=== PATIENT | female | born 1970 ===

== ENCOUNTER 2020-04-11 15:20 | Day surgery (SDC) | payer BC ==
[2020-04-11] VITALS (8 sets, daily range): BP systolic 108–145; BP diastolic 62–85
[~2020-04-11] VITALS: Ht 170.2 cm; Wt 58.6 kg
[~2020-04-11 15:20] MED LIST: LIDOcaine Viscous 15ml cup ONE; MIDAZolam 5mg/5ml vial ONE; diphenhydrAMINE 50 mg/ml inj ONE; fentaNYL/PF 50MCG/1 ML 2ML syringe ONE; glucagon, human recombinant 1mg kit ONE; iohexol 300 MG/1 ML 50ml polymer ONE; levoFLOXACIN-Levaquin 500mg/D5 100 ML IV ONE
[2020-04-11] MEDS ORDERED: DEXL60CA3 PO (15:31)
== END 2020-04-11 17:11 | disposition home or self-care (01) ==
LOC: GI LAB 15:20
PROVIDERS: ATTEND Internal Medicine Gastroenterology
DX: K80.50 Calculus of bile duct without cholangitis or cholecystitis without obstruction (principal); Z79.899 Other long term (current) drug therapy
CPT/HCPCS: 43262; 43264; 74328; 99152; 99153; C1769; J1200; J1610; J1956; J2250; J3010; J7040; Q9967; A4620